=== PATIENT | female | born 1935 | race Caucasian/White ===

== ENCOUNTER 2023-04-20 01:38 | Observation (INO) | payer MEDICARE ==
[2023-04-20 04:56] VITALS: BMI 20.1
[2023-04-20] MEDS ORDERED: Acetaminophen 650 MG Suppository PR PRN (05:00)
[2023-04-20] MEDS ORDERED: Ondansetron ODT 4 MG TAB PO PRN (05:00)
[2023-04-20] MEDS ORDERED: Ondansetron PF 4 MG/2 ML Vial IVP PRN (05:00)
[2023-04-20] MEDS ORDERED: Acetaminophen 325 MG TAB PO PRN (05:00)
[2023-04-20 10:39] LABS: Anion Gap 12 mmol/L (10-20); BUN (Urea Nitrogen) 12 mg/dL (9.8-20.1); Calc. Creatinine Clearance 43 mL/min (70-130); Calcium 8.7 mg/dL (7.8-10.44); Carbon Dioxide 26 mmol/L (23-31); Chloride 98 mmol/L (98-107); Estimated GFR 85; Glucose 91 mg/dL (83-110); Magnesium 1.9 mg/dL (1.6-2.6); Phosphorus 2.5 mg/dL (2.3-4.7); Potassium 3.6 mmol/L (3.5-5.1); Sodium 132 mmol/L (136-145)
[2023-04-20] MEDS: Temazepam 15 MG CAP PO PRN (20:14)
[2023-04-20] MEDS: Mirabegron ER 25 MG ER.TAB PO SCH (20:14)
[2023-04-20] MEDS: Trospium 20 MG TAB PO SCH (20:14)
[2023-04-20] MEDS: Cholestyramine/Aspartame 4 gm Packet PO SCH (22:57)
[2023-04-21] MEDS: Cholestyramine/Aspartame 4 gm Packet PO SCH ×3 (05:00→20:51)
[2023-04-21 06:05] LABS: #Eosinphils 0.2 thou/uL (0.0-0.7); #Neutrophils 4.3 thou/uL (1.40-6.50); %Basophils 0.6 % (0.0-1.0); %Eosinophils 2.2 % (0.0-10.0); %Lymphocytes 23.3 % (21.0-51.0); %Monocytes 13.6 % (0.0-10.0); %Neutrophils 59.9 % (42.0-75.0); Hematocrit 37.8 % (36.0-47.0); Hemoglobin 12.8 g/dL (12.0-16.0); Mean Corpuscular HGB CONC 33.9 g/dL (32.0-36.0); Mean Corpuscular Hemoglobin 31.6 pg (27.0-31.0); Mean Corpuscular Volume 93.3 fl (78.0-98.0); Mean Platelet Volume 9.2 fL (7.4-10.4); Platelet Count 259 10x3/uL (130-400); RBC Distribution Width 12.9 % (11.5-14.5); Red Blood Cell (RBC) Count 4.05 mill/uL (4.20-5.40); White Blood Cell (WBC) Count 7.2 10x3/uL (4.8-10.8)
[2023-04-21 06:47] LABS: Anion Gap 10 mmol/L (10-20); BUN (Urea Nitrogen) 10 mg/dL (9.8-20.1); Calc. Creatinine Clearance 43 mL/min (70-130); Calcium 9.3 mg/dL (7.8-10.44); Carbon Dioxide 28 mmol/L (23-31); Chloride 101 mmol/L (98-107); Estimated GFR 83; Glucose 100 mg/dL (83-110); Potassium 3.2 mmol/L (3.5-5.1); Sodium 136 mmol/L (136-145)
[2023-04-21] MEDS: Trospium 20 MG TAB PO SCH ×2 (08:17→20:51)
[2023-04-21] MEDS: CO Q-10 CAPSULE 100 MG PO SCH (08:17)
[2023-04-21] MEDS ORDERED: Potassium Chloride 20 MEQ TAB PO SCH (09:00)
[2023-04-21] MEDS: traZODone HCl 50 MG TAB PO PRN (20:51)
[2023-04-21] MEDS: Mirabegron ER 25 MG ER.TAB PO SCH (20:51)
[2023-04-22] MEDS: Temazepam 15 MG CAP PO PRN ×2 (00:28→20:24)
[2023-04-22] MEDS: Trospium 20 MG TAB PO SCH ×2 (08:40→20:24)
[2023-04-22] MEDS: CO Q-10 CAPSULE 100 MG PO SCH (08:41)
[2023-04-22] MEDS: Cholestyramine/Aspartame 4 gm Packet PO SCH ×3 (08:41→20:25)
[2023-04-22] MEDS: Mirabegron ER 25 MG ER.TAB PO SCH (20:24)
[2023-04-22] MEDS: traZODone HCl 50 MG TAB PO PRN (20:24)
[2023-04-23] MEDS: Cholestyramine/Aspartame 4 gm Packet PO SCH ×3 (05:40→20:23)
[2023-04-23] MEDS: Trospium 20 MG TAB PO SCH ×2 (09:31→20:16)
[2023-04-23] MEDS: CO Q-10 CAPSULE 100 MG PO SCH (09:32)
[2023-04-23] MEDS: Temazepam 15 MG CAP PO PRN (20:15)
[2023-04-23] MEDS: traZODone HCl 50 MG TAB PO PRN (20:15)
[2023-04-23] MEDS: Mirabegron ER 25 MG ER.TAB PO SCH (20:16)
[2023-04-24] MEDS: Cholestyramine/Aspartame 4 gm Packet PO SCH (05:48)
[2023-04-24] MEDS: Trospium 20 MG TAB PO SCH (08:32)
[2023-04-24] MEDS: CO Q-10 CAPSULE 100 MG PO SCH (08:32)
[2023-04-24 08:36] VITALS: BP 97/65; TEMP 97.7
== END 2023-04-24 13:00 | disposition home or self-care (01) ==
LOC: SJJU 04:00
PROVIDERS: ADMIT Student in an Organized Health Care Education/Training Program; ATTEND Internal Medicine
DX: R53.1 Weakness (principal); F03.90 Unspecified dementia, unspecified severity, without behavioral disturbance, psychotic disturbance, mood disturbance, and anxiety; E87.6 Hypokalemia; E87.1 Hypo-osmolality and hyponatremia; Z88.0 Allergy status to penicillin; Z79.899 Other long term (current) drug therapy
CPT/HCPCS: 80048 ×2; 83735; 84100; 85025; 97116 ×2; G0378 ×5; 36415